=== PATIENT | male | born 1980 | race Caucasian/White ===

== ENCOUNTER 2024-01-10 11:46 | Emergency (ER) | payer OTHER, SELFPAY ==
[2024-01-10 11:47] VITALS: BP 160/100; PULSE 86; RESP 16; TEMP 36.8; O2SAT 100; BMI 36.5
--- NOTE | 2024-01-10 12:18 | PC.NURSE ---
Dr. Alonso at [facility] for pt eval
--- NOTE | 2024-01-10 12:27 | PC.NURSE ---
Dr. Alonso and Raoul Castro RN at for procedure
--- NOTE | 2024-01-10 12:32 | ED_ITS ---
Discharge Plan Disposition Patient Disposition: Home, Self-Care Chief Complaint: Skin/Abscess/Foreign Body Prescriptions Prescriptions: No Action amoxicillin-pot clavulanate [Augmentin] 875-125 mg tablet 1 tab PO BID 10 Days Qty: 20 0RF Referrals Follow up/Referrals: Canelo Patel MD [Primary Care Provider] - See instructions Activity Restrictions/Add. Instructions Additional Instructions/Restrictions: At this time it was felt you are safe to be discharged home. If new or worsening symptoms please do not hesitate to return the emergency department. If symptoms persist please follow-up with your family doctor as you are able. Clinical Impressions Clinical Impression: Abscess of right thigh Instructions Patient Instructions: DI for Skin Abscess Discharge ED Provider: Dell Alonso General Adult HPI General Chief complaint: Skin/Abscess/Foreign Body Stated complaint: Large infection on inside of R thigh Time Seen by Provider: 01/10/24 12:05 Mode of Arrival: Ambulatory Source of Information: Patient Limitations: No Limitations Description of Symptoms (Recalled from ER Triage Doc. by RN): c/o swollen red ar ea on right thigh/groin area, states he has had a few of these over the last 6 months that he has had to get lanced. pt states that he does alot of walking at work and even with powders and covering the area he keeps getting these spots. Per his pcp this is pores that are getting clogged. History of Present Illness HPI narrative: Patient is a 43-year-old male with recurrent abscesses in his right groin presents emergency department for evaluation of abscess. He has had these a few times over the last 6 months to 1 year, is worse with walking at work rubbing his thighs. He has recently completed a course of Bactrim however it persists and he presents here for continued evaluation. No other acute complaints at this time. Related Data Home Medications Medication Instructions Recorded Confirmed omega-3 fatty acids 1,000 mg 1,000 mg PO DAILY 09/14/19 capsule (Fish Oil Concentrate) vitamin B complex (B 1 tab PO DAILY 09/14/19 Complex-Vitamin B12 tablet) Previous Rx's Medication Instructions Recorded amoxicillin 875 mg-potassium 1 tab PO BID 10 days #20 tabs 09/14/19 clavulanate 125 mg tablet (Augmentin) Allergies Allergy/AdvReac Type Severity Reaction Status Date / Time NO KNOWN ALLERGIES Allergy Uncoded 09/14/19 17:27 [facility] Disclaimer: The information contained in this section may have been updated after the patient was seen, as this information can be updated by other users. Social History Smoking Status: Never smoker alcohol intake: current alcohol intake frequency: holidays/special occasions only substance use type: denies use current occupational status: employed Travel in the last 8 weeks: None household members: spouse housing: house ROS Obtained: Yes Systems reviewed as appropriate & no additional complaints except as documented Physical Exam General General appearance: alert and in no apparent distress Head Head exam: atraumatic and normocephalic Eye Eye exam: Present PERRL ENT ENT exam: Present mucous membranes moist Neck Neck exam: Present normal inspection Chest Chest inspection: Present normal inspection and symmetric chest wall rise Respiratory Respiratory exam: Absent respiratory distress Cardiovascular Cardiovascular exam: Present regular rate and normal rhythm Abdominal Exam Abdominal exam: Present soft exam: Present other (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 Mild overlying erythema, no streaking erythema into the groin or down the lower extremity.) Extremities Exam Extremities exam: Present normal inspection Neurological Exam Neurological exam: Present alert Psychiatric Psychiatric exam: Present normal affect Skin Skin exam: Present warm and dry Medical Decision Making Rafael Inquiry Pt receiving controlled substance: No Vital Signs: 01/10/24 11:47 Temperature 98.2 F Temperature Source Oral Pulse Rate [Left Radial] 86 Respiratory Rate 16 Blood Pressure [Right Arm] 160/100 H Blood Pressure Mean [Right Arm] 120 Blood Pressure Source [Right Arm] Automatic Cuff Blood Pressure Position [Right Arm] Sitting 02 Sat by Pulse Oximetry 100 Oxygen Delivery Method Room Air Medical Decision Narrative: In summary patient is a 43-year-old male with past medical history described above presents emergency department for evaluation of thigh abscess. Patient is hemodynamically stable nontoxic-appearing upon arrival, afebrile. Area of fluctuance was palpated. These areas underwent lancing with expression of hemopurulent material. Patient tolerated procedure well, wound was dressed at bedside and given that there is no overlying cellulitis down the lower extremity he has recently completed course of antibiotics lancing should be definitive for this and patient will follow-up with his family doctor on outpatient basis and was given return precautions. Procedure: Procedure performed incision and drainage by Dell Alonso. Indication was abscess. ChloraPrep was applied over the areas of fluctuance, 1% lidocaine with epinephrine was infiltrated into the areas of fluctuance approxi mately 3 cc. Approximately 5 cc of hemopurulent material was expressed from the wounds. Patient tolerated procedure well. Wounds were dressed at bedside. Patient is appropriate for discharge at this time. Critical Care Critical Care Time Critical Care Time: No
[2024-01-10 12:42] VITALS: BP 129/92; PULSE 74; RESP 16; TEMP 36.8; O2SAT 97
== END 2024-01-10 12:44 | disposition home or self-care (01) ==
PROVIDERS: Emergency Provider Emergency Medicine; PCP Family Medicine
DX: L02.413 Cutaneous abscess of right upper limb (principal)
CPT/HCPCS: 10060; 99282